=== PATIENT | male | born 1940 | race Two or more races ===

== ENCOUNTER 2020-02-04 15:20 | Outpatient (CLI) | payer OTHER ==
[~2020-02-04 15:20] MED LIST: AMIODARONE HCL200 MG NGT; ASACOL; BACTROBAN OINT22 GM TP; CEFADROXIL500 MG PO; CENTRUM TABLET1 TAB; CRANBERRY500 M1; DELZICOL400 MG PO; GLUCOSAMINE CHO1 CA3; HEMATRON P.O.1 UDTAB PO; HYZAAR 100-251 UDTAB PO; HYZAAR 100/25 T1 TAB; MICRO-K8 MEQ PO; OMEGA-31000 MG; OSEL75CA PO; RYTHMOL225 MG; SAW PALMETTO80 MG; SIMVASTATIN10 MG; SLOW K; TUSSI PRES-B L120 M1 PO
== END 2020-02-04 16:24 | disposition home or self-care (01) ==
LOC: SONOGRAMA 15:20
PROVIDERS: ATTEND Urology
DX: N40.0 Benign prostatic hyperplasia without lower urinary tract symptoms (principal); R31.21 Asymptomatic microscopic hematuria

== ENCOUNTER → 2020-05-19 08:00 | Outpatient (CLI) | payer OTHER | END | disposition home or self-care (01) | LOC: PPH VACUNA 08:00 | PROVIDERS: ATTEND Emergency Medicine Pediatric Emergency Medicine | DX: Z23 Encounter for immunization (principal) ==

== ENCOUNTER 2020-05-30 | Outpatient (CLI) | payer OTHER | END 2020-05-30 10:00 | disposition home or self-care (01) | LOC: PPH VACUNA | PROVIDERS: ATTEND Emergency Medicine Pediatric Emergency Medicine | DX: Z23 Encounter for immunization (principal) ==

== ENCOUNTER 2020-12-22 08:00 | Outpatient (CLI) | payer OTHER | END 2020-12-22 08:30 | disposition home or self-care (01) | LOC: PPH VACUNA 08:00 | DX: Z23 Encounter for immunization (principal) ==

== ENCOUNTER 2021-08-12 08:00 | Outpatient (CLI) | payer OTHER | END 2021-08-12 08:30 | disposition home or self-care (01) | LOC: PPH VACUNA 08:00 | PROVIDERS: ATTEND Emergency Medicine Pediatric Emergency Medicine | DX: Z23 Encounter for immunization (principal) ==

== ENCOUNTER 2022-03-15 11:00 | Outpatient (CLI) | payer OTHER | END 2022-03-15 11:10 | disposition home or self-care (01) | LOC: PPH VACUNA 11:00 | PROVIDERS: ATTEND Emergency Medicine Pediatric Emergency Medicine | DX: Z23 Encounter for immunization (principal) ==

== ENCOUNTER 2022-12-23 10:08 | Outpatient (CLI) | payer OTHER | END 2022-12-23 10:09 | disposition home or self-care (01) | LOC: NUCLEAR 10:08 | DX: I70.219 Atherosclerosis of native arteries of extremities with intermittent claudication, unspecified extremity (principal); I10 Essential (primary) hypertension; R22.43 Localized swelling, mass and lump, lower limb, bilateral ==

== ENCOUNTER 2022-12-24 10:27 | Outpatient (CLI) | payer OTHER | END 2022-12-24 10:28 | disposition home or self-care (01) | LOC: NUCLEAR 10:27 | DX: I70.219 Atherosclerosis of native arteries of extremities with intermittent claudication, unspecified extremity (principal); I10 Essential (primary) hypertension; R22.43 Localized swelling, mass and lump, lower limb, bilateral ==

== ENCOUNTER 2022-12-30 13:46 | Outpatient (CLI) | payer OTHER | END 2022-12-30 13:48 | disposition home or self-care (01) | LOC: LAB 13:46 | DX: K56.50 Intestinal adhesions [bands], unspecified as to partial versus complete obstruction (principal) ==

== ENCOUNTER 2023-01-06 07:10 | Outpatient (CLI) | payer OTHER | END 2023-01-06 07:23 | disposition home or self-care (01) | LOC: TOM 07:10 | PROVIDERS: ATTEND Internal Medicine Gastroenterology | DX: K50.00 Crohn's disease of small intestine without complications (principal); K56.50 Intestinal adhesions [bands], unspecified as to partial versus complete obstruction; Z87.19 Personal history of other diseases of the digestive system | CPT/HCPCS: 74177; Q9965 ==

== ENCOUNTER 2023-02-08 07:36 | Outpatient (CLI) | payer OTHER | END 2023-02-08 07:37 | disposition home or self-care (01) | LOC: NUCLEAR 07:36 | PROVIDERS: ATTEND Internal Medicine | DX: I25.10 Atherosclerotic heart disease of native coronary artery without angina pectoris (principal) | CPT/HCPCS: 78452; 93017; A9500 ==

== ENCOUNTER 2024-03-05 09:21 | Inpatient (IN) | payer OTHER ==
[~2024-03-05] VITALS: Ht 170.2 cm; Wt 93.4 kg
--- NOTE | 2024-03-05 09:25 | NUR ---
PACIENTE MASCULINO ALERTA Y ORIENTADO X3, REFIERE DOLOR ABDOMINAL Y VOMITO 4 VECES Y REFIERE QUE ES ESCRETA.
[2024-03-05] MEDS ORDERED: FAMOTIDINE/PF 20 MG in 0.9 % SODIUM CHLORIDE 8 ML IV PUSH STA (09:37)
[2024-03-05] MEDS ORDERED: ONDANSETRON HCL 2 MG/ML VIAL IV ONE (09:45)
[2024-03-05] MEDS ORDERED: 0.9 % SODIUM CHLORIDE 1,000 ML IV SCH ×2 (09:45→13:15)
--- NOTE | 2024-03-05 09:52 | NUR ---
SE ORIENTA A PACIENTE SOBRE TRATAMIENTO MEDICO, REFIERE ENTENDER. SE COLECTAN MUESTRAS DE LABORATORIO BAJO MEDIDAS ASEPTICAS. SE CANALIZA Y SE ADMINISTRAN MEDICAMENTOS [place] ORDEN MEDICA. SE NOTIFICA CT PENDIENTE.
[2024-03-05 10:19] LABS: HEMATOCRIT 47.7 % (39.0-48.0); HEMOGLOBIN 16.2 g/dL (13-16.00); MEAN CELL VOLUME 96.7 fL (80.0-100.00); MEAN CORPUSCULAR HEMOGLOBIN 32.9 pg (27.00-32.0); MEAN CORPUSCULAR HGB CONC 34.1 g/dl (32.0-36.0); PLATELET COUNT 216 K/uL (150-450); RED BLOOD COUNT 4.93 M/uL (4.00-6.00); RED CELL DISTRIBUTION WIDTH 13.2 % (11.5-14.5)
[2024-03-05 10:43] LABS: INR 1.05; PARTIAL THROMBOPLASTIN TIME 27.3 SECONDS (22.0-34.0); PROTHROMBIN TIME 11.4 SECONDS (9.0-11.5)
[2024-03-05 11:28] LABS: ALBUMIN 3.8 gm/dL (3.4-5.0); BILIRUBIN TOTAL 3.74 mg/dL (0.3-1.2); CREATININE SERUM 1.26 mg/dL (0.70-1.30); GFR 54.52; GLOBULINA 3.6 G/DL (2.4-3.5); POTASSIUM 4.19 mEq/L (3.5-5.1); TOTAL PROTEIN 7.4 gm/dL (6.4-8.2)
[2024-03-05] MEDS ORDERED: PIPERACILLIN/TAZOBACTAM SODIUM 3.375 GM in 0.9 % SODIUM CHLORIDE 100 ML IV SCH (13:04)
[2024-03-05] MEDS ORDERED: FAMOTIDINE/PF 20 MG in 0.9 % SODIUM CHLORIDE 100 ML IV SCH (13:04)
[2024-03-05] MEDS ORDERED: SODIUM CHLORIDE 0.9% IV SCH (13:06)
[2024-03-05] MEDS ORDERED: METHYLPREDNISOLONE SOD SUCC IV SCH (13:06)
[2024-03-05] MEDS ORDERED: levoFLOXacin IN DEXTROSE 5 % 150 ML IV SCH (13:06)
[2024-03-05] MEDS ORDERED: METRONIDAZOLE/SODIUM CHLORIDE 500 MG/100 ML PIGGYBACK IV SCH ×2 (13:06→17:00)
[2024-03-05] MEDS ORDERED: ENALAPRILAT DIHYDRATE 1.25 MG/ML VIAL IV PRN ×2 (13:30→16:30)
[2024-03-05] MEDS ORDERED: MORPHINE SULFATE 2 MG/ML CARTRIDGE IV PRN ×2 (13:30→16:30)
[2024-03-05] MEDS ORDERED: FAMOTIDINE/PF 20 MG in 0.9 % SODIUM CHLORIDE 10 ML IV SCH (17:00)
[2024-03-05 17:17] VITALS: BP 126/76; O2SAT 95
[2024-03-05 17:32] LABS: PH,URINE 5.5 (5.0-8.0); URINE APPEARANCE Clear; URINE BILIRRUBIN Negative (NEGATIVE); URINE BLOOD Negative; URINE COLOR Dark Yellow; URINE GLUCOSE Negative (NEGATIVE); URINE KETONE Negative (NEGATIVE); URINE LEUKOCYTE Negative; URINE NITRATE Negative; URINE PROTEIN Trace (NEGATIVE); URINE UROBILINOGEN 0.2 E.U./dl
[2024-03-05 17:36] LABS: URINE BACTERIA 32.7 uL (0.0-1933); URINE EPITHELIAL CELLS 5.4 uL (0.0-38.8); URINE RBC 25.6 uL (0.0-20.8); URINE WBC 13.8 uL (0.0-23.2)
[2024-03-06] VITALS: BP 106/68; O2SAT 96
[2024-03-06 08:20] VITALS: BP 115/56; O2SAT 97
[2024-03-06 18:25] VITALS: BP 122/74; O2SAT 95
[2024-03-06 19:26] LABS: BILIRUBIN TOTAL 2.22 mg/dL (0.3-1.2); CALCIUM 8.8 mg/dL (8.5-10.1); CREATININE SERUM 0.89 mg/dL (0.70-1.30); GFR 81.44; GLOBULINA 3.3 G/DL (2.4-3.5); POTASSIUM 4.24 mEq/L (3.5-5.1); TOTAL PROTEIN 6.3 gm/dL (6.4-8.2)
[2024-03-07] VITALS: BP 129/61; O2SAT 97
[2024-03-07 08:20] VITALS: BP 161/88; O2SAT 98
[2024-03-07] MEDS ORDERED: SODIUM CHLORIDE 0.45 % 1,000 ML IV SCH (14:30)
[2024-03-07 16:00] VITALS: BP 144/75; O2SAT 95
[2024-03-07] MEDS ORDERED: METHYLPREDNISOLONE SOD SUCC IV SCH (21:00)
[2024-03-07] MEDS ORDERED: SODIUM CHLORIDE 0.9% IV SCH (21:00)
[2024-03-08] VITALS: BP 125/67; O2SAT 95
[2024-03-08 08:35] VITALS: BP 124/68; O2SAT 95
[2024-03-08 16:00] VITALS: BP 123/69; O2SAT 94
[2024-03-09] VITALS: BP 143/70; O2SAT 95
[2024-03-09 06:43] LABS: HEMATOCRIT 40.4 % (39.0-48.0); HEMOGLOBIN 14.3 g/dL (13-16.00); MEAN CELL VOLUME 95.2 fL (80.0-100.00); MEAN CORPUSCULAR HEMOGLOBIN 33.6 pg (27.00-32.0); MEAN CORPUSCULAR HGB CONC 35.4 g/dl (32.0-36.0); PLATELET COUNT 201 K/uL (150-450); RED BLOOD COUNT 4.24 M/uL (4.00-6.00); RED CELL DISTRIBUTION WIDTH 13.5 % (11.5-14.5)
[2024-03-09 07:27] LABS: CALCIUM 8.5 mg/dL (8.5-10.1); CREATININE SERUM 0.77 mg/dL (0.70-1.30); GFR 96.25; POTASSIUM 3.91 mEq/L (3.5-5.1)
[2024-03-09 08:00] VITALS: BP 141/74; O2SAT 97
[2024-03-09 14:45] LABS: CALCIUM 8.6 mg/dL (8.5-10.1); CHOL HDL RATIO 2.9 (0-5.0); CREATININE SERUM 0.91 mg/dL (0.70-1.30); GFR 79.37; POTASSIUM 4.13 mEq/L (3.5-5.1)
[2024-03-09 16:14] VITALS: BP 161/71; O2SAT 99
[2024-03-09] MEDS ORDERED: AA 4.25%/CAL/LYTES/DEXT 5% 1,000 ML PERIFERAL SCH (17:00)
[2024-03-09 17:01] VITALS: BP 150/80
[2024-03-09] MEDS ORDERED: FAT EMULSIONS 250 ML IV SCH (21:00)
[2024-03-10 00:53] VITALS: BP 139/93; O2SAT 96
[2024-03-10 09:57] LABS: ALBUMIN 3.3 gm/dL (3.4-5.0); BILIRUBIN TOTAL 1.04 mg/dL (0.3-1.2); CALCIUM 8.8 mg/dL (8.5-10.1); CREATININE SERUM 0.81 mg/dL (0.70-1.30); GFR 90.78; GLOBULINA 2.8 G/DL (2.4-3.5); POTASSIUM 4.6 mEq/L (3.5-5.1); TOTAL PROTEIN 6.1 gm/dL (6.4-8.2)
[2024-03-10 11:01] LABS: HEMATOCRIT 44.8 % (39.0-48.0); HEMOGLOBIN 15.4 g/dL (13-16.00); MEAN CELL VOLUME 97.5 fL (80.0-100.00); MEAN CORPUSCULAR HEMOGLOBIN 33.5 pg (27.00-32.0); MEAN CORPUSCULAR HGB CONC 34.3 g/dl (32.0-36.0); PLATELET COUNT 243 K/uL (150-450); RED CELL DISTRIBUTION WIDTH 12.9 % (11.5-14.5)
[2024-03-10] MEDS ORDERED: LEVALBUTEROL HCL 0.63 MG/3 ML SOLUTION IH SCH (14:00)
[2024-03-10 14:35] VITALS: BP 135/85; O2SAT 99
[2024-03-10 18:59] VITALS: BP 169/78; O2SAT 95
[2024-03-11 00:52] VITALS: BP 146/93; O2SAT 96
[2024-03-11 02:15] VITALS: BP 141/84; O2SAT 99
[2024-03-11 08:00] VITALS: BP 157/75; O2SAT 96
[2024-03-11 16:00] VITALS: BP 140/66; O2SAT 96
[2024-03-11] MEDS ORDERED: GUAIFENESIN 200 MG/10 ML BLIST.PACK PO SCH (19:56)
[2024-03-12 00:49] VITALS: BP 141/74; O2SAT 96
[2024-03-12 07:10] LABS: HEMATOCRIT 40.4 % (39.0-48.0); HEMOGLOBIN 13.9 g/dL (13-16.00); MEAN CELL VOLUME 96.3 fL (80.0-100.00); MEAN CORPUSCULAR HEMOGLOBIN 33.2 pg (27.00-32.0); MEAN CORPUSCULAR HGB CONC 34.5 g/dl (32.0-36.0); PLATELET COUNT 185 K/uL (150-450); RED BLOOD COUNT 4.19 M/uL (4.00-6.00); RED CELL DISTRIBUTION WIDTH 12.8 % (11.5-14.5)
[2024-03-12 07:16] LABS: INR 1.16; PARTIAL THROMBOPLASTIN TIME 27.3 SECONDS (22.0-34.0); PROTHROMBIN TIME 12.5 SECONDS (9.0-11.5)
[2024-03-12 07:42] LABS: ALBUMIN 2.9 gm/dL (3.4-5.0); BILIRUBIN TOTAL 0.94 mg/dL (0.3-1.2); BILIRUBIN,CONJUGATED 0.24 mg/dL (0.0-0.2); BILIRUBIN,UNCONJUGATED 0.7 mg/dL (0.0-0.6); CALCIUM 8.5 mg/dL (8.5-10.1); CHOL HDL RATIO 3.2 (0-5.0); CREATININE SERUM 0.68 mg/dL (0.70-1.30); GFR 111.09; GLOBULINA 2.5 G/DL (2.4-3.5); MAGNESIUM 2.5 mg/dL (1.8-2.4); POTASSIUM 4.35 mEq/L (3.5-5.1); TOTAL PROTEIN 5.4 gm/dL (6.4-8.2)
[2024-03-12 08:32] VITALS: BP 149/72; O2SAT 96
[2024-03-12 08:47] LABS: UREA CLEARANCE 59.6 ML/MIN
[2024-03-12 16:00] VITALS: BP 141/78; O2SAT 97
[2024-03-13] VITALS: BP 139/78; O2SAT 95
[2024-03-13 09:31] VITALS: BP 136/79; O2SAT 98
== END 2024-03-13 12:56 | disposition home or self-care (01) | DRG 389 ==
LOC: ER 09:23 → SEC-K 13:28 → SURH 13:28
PROVIDERS: General Practice; Internal Medicine; ADMIT Internal Medicine; ATTEND Internal Medicine
PROC: BW21YZZ Computerized Tomography (CT Scan) of Abdomen and Pelvis using Other Contrast (ICD-10-PCS; 2024-03-05)
PROC: 02HV33Z Insertion of Infusion Device into Superior Vena Cava, Percutaneous Approach (ICD-10-PCS; principal; 2024-03-10)
DX: K56.50 Intestinal adhesions [bands], unspecified as to partial versus complete obstruction (principal); K50.912 Crohn's disease, unspecified, with intestinal obstruction; I10 Essential (primary) hypertension; E78.5 Hyperlipidemia, unspecified